=== PATIENT | female | born 1960 | race Caucasian/White ===

== ENCOUNTER → 2017-09-14 | Outpatient (CLI) | payer BC | PROVIDERS: ATTEND Otolaryngology | DX: R13.10 Dysphagia, unspecified (principal); Z87.718 Personal history of other specified (corrected) congenital malformations of genitourinary system | CPT/HCPCS: 92611-GN ==

== ENCOUNTER → 2018-03-18 | Outpatient (CLI) | payer BC | LOC: FIMAGING 13:32 | PROVIDERS: ATTEND Physician Assistant Surgical | DX: Z09 Encounter for follow-up examination after completed treatment for conditions other than malignant neoplasm (principal); M43.12 Spondylolisthesis, cervical region; M41.84 Other forms of scoliosis, thoracic region; Z98.1 Arthrodesis status ==